=== PATIENT | male | born 1985 | race Caucasian/White ===

== ENCOUNTER 2025-06-21 22:20 | Emergency (ER) | payer OTHER ==
[~2025-06-21] VITALS: Ht 185.4 cm; Wt 111.1 kg
[2025-06-22] MEDS ORDERED: SULF1TAB48 PO (01:45)
[2025-06-22 02:17] VITALS: BP 142/76; TEMP 98.4; O2SAT 98
== END 2025-06-22 02:18 | disposition home or self-care (01) ==
LOC: ER 22:26
DX: L02.412 Cutaneous abscess of left axilla (principal); Z60.2 Problems related to living alone